=== PATIENT | female | born 1990 | race Caucasian/White ===

== ENCOUNTER → 2016-11-20 | Outpatient (REF) | payer OTHER | LOC: M SFHCLERA 10:05 | PROVIDERS: ATTEND Physician Assistant | DX: J02.9 Acute pharyngitis, unspecified (principal) ==

== ENCOUNTER → 2016-12-19 | Outpatient (REF) | payer OTHER | LOC: M SFHCLERA 09:52 | PROVIDERS: ATTEND Physician Assistant | DX: R50.9 Fever, unspecified (principal) ==

== ENCOUNTER → 2017-01-10 | Outpatient (CLI) | payer OTHER ==
--- NOTE | 2017-01-10 13:52 | REP ---
Clinical: Acute right-sided pain. Nephrolithiasis. Technique: Single supine view of the abdomen and pelvis. Findings: Evaluation of the urinary tract system is somewhat limited due to interposed bowel gas. However, bilateral renal calculi measuring up to approximately 4 mm are suggested. The bowel gas pattern is nonspecific. No organomegaly. Skeletal structures intact. Impression: Nonspecific bowel gas pattern Suspected bilateral renal calculi. Signed by Quentin Hood MD 01/10/2017 01:43 P
== END ==
LOC: M LRY 12:54
PROVIDERS: ATTEND Physician Assistant
DX: M54.6 Pain in thoracic spine (principal)
CPT/HCPCS: 74000; 96372; G0463; J1885